=== PATIENT | male | born 1980 | race Caucasian/White ===

== ENCOUNTER 2019-09-18 09:20 | Emergency (ER) | payer BC, OTHER ==
[2019-09-18] MEDS ORDERED: Ondansetron 4 MG/2 ML SDV IV ONE (09:47)
[2019-09-18] MEDS ORDERED: Sodium Chloride 0.9% 10 ML Syringe FLUSH PRN (09:47)
[2019-09-18] MEDS ORDERED: Sodium Chloride 0.9% 1,000 ML IV ONE ×2 (09:47→11:04)
--- NOTE | 2019-09-18 09:47 | EDM.PDOC ---
ED HPI GENERAL MEDICAL PROBLEM - General Chief Complaint: Abdominal Pain Stated Complaint: MARTIN DOBSONRIA PAIN IN LEFT SIDE STOMACH Time Seen by Provider: 09/18/19 09:46 Source of Information: Reports: Patient, RN, RN Notes Reviewed History Limitations: Reports: No Limitations - History of Present Illness INITIAL COMMENTS - FREE TEXT/NARRATIVE: 38 year male presents to ER from home with c/o fever and left sided abdominal pain associated with diarrhea and nausea. Denies vomiting. He admits to a mild cough. Denies chest pain or shortness of breath. The symptoms came on suddenly yesterday. He reports recent exposure to a male with similar symptoms with whom he as been working in close quarters with. The male co-worker was Covid tested and negative. Onset: Sudden Onset Date: 09/17/19 Duration: Constant Location: Reports: Abdomen Quality: Reports: Ache, Other (Cramping) Severity: Severe Improves with: Reports: None Worsens with: Reports: None Associated Symptoms: Reports: No Other Symptoms Abdominal Pain Score (Numeric/FACES): 8 - Related Data Allergies Allergy/AdvReac Type Severity Reaction Status Date / Time No Known Allergies Allergy Verified 08/26/13 15:50 Home Meds: Home Meds . [No Known Home Meds] 08/26/13 [History] Past Medical History - Past Health History Medical/Surgical History: Denies Medical/Surgical History Social & Family History - Family History Family Medical History: Noncontributory - Tobacco Use Smoking Status *Q: Never Smoker - Caffeine Use Caffeine Use: Reports: Coffee - Recreational Drug Use Recreational Drug Use: No - Living Situation & Occupation Living situation: Reports: with Family Occupation: Employed ED ROS GENERAL - Review of Systems Review Of Systems: Comprehensive ROS is negative, except as noted in HPI. ED EXAM, GI/ABD - Physical Exam Exam: See Below Exam Limited By: No Limitations General Appearance: Alert, WD/WN, No Apparent Distress Eyes: Bilateral: Normal Appearance (No scleral icterus) Ears: Normal External Exam Nose: Normal Inspection, Normal Mucosa, No Blood Throat/Mouth: Normal Inspection, Normal Lips, Normal Teeth, Normal Gums, Normal Oropharynx, Normal Voice, No Airway Compromise Head: Atraumatic, Normocephalic Neck: Normal Inspection, Supple, Non-Tender, Full Range of Motion Respiratory/Chest: No Respiratory Distress, Lungs Clear, Normal Breath Sounds, No Accessory Muscle Use, Chest Non-Tender Cardiovascular: Regular Rate, Rhythm, No Edema, Tachycardia GI/Abdominal Exam: Soft, No Organomegaly, No Distention, No Abnormal Bruit, No Mass, Tender (mild at epigastric, LUQ and LLQ), Abnormal Bowel Sounds (Slightly hyperactive bowel sounds). No: Guarding, Rigid, Rebound (Male) Exam: Deferred Rectal (Males) Exam: Deferred Back Exam: Normal Inspection. No: CVA Tenderness (L), CVA Tenderness (R) Extremities: Normal Inspection, Normal Range of Motion, Non-Tender, Normal Capillary Refill, No Pedal Edema Neurological: Alert, Oriented, CN II-XII Intact, Normal Cognition, Normal Gait, No Motor/Sensory Deficits Psychiatric: Normal Affect, Normal Mood Skin Exam: Warm, Dry, Intact, Normal Color, No Rash. No: Ecchymosis, Jaundice, Petechiae Course - Vital Signs Last Recorded V/S: Last Vital Signs Temp 97.2 F 09/18/19 09:32 Pulse 110 H 09/18/19 09:32 Resp 14 09/18/19 09:32 BP 122/98 H 09/18/19 09:32 Pulse Ox 96 09/18/19 09:32 - Orders/Labs/Meds Orders: Active Orders 24 hr Category Date Time Status Peripheral IV Care [RC] . DIRECTED Care 09/18/19 09:47 Active Sodium Chloride 0.9% [Normal Saline] 1,000 ml Med 09/18/19 11:04 Active IV .BOLUS Sodium Chloride 0.9% [Saline Flush] Med 09/18/19 09:47 Active 10 ml FLUSH ASDIRECTED PRN Peripheral IV Insertion Adult [OM.PC] Stat Oth 09/18/19 09:47 Ordered Medication Orders Sodium Chloride (Normal Saline) 1,000 mls @ 999 mls/hr IV .BOLUS ONE Stop: 09/18/19 12:04 Last Admin: 09/18/19 11:14 Dose: 999 mls/hr Sodium Chloride (Saline Flush) 10 ml FLUSH ASDIRECTED PRN PRN Reason: Keep Vein Open Last Admin: 09/18/19 10:00 Dose: 10 ml Labs: Laboratory Tests 09/18/19 09/18/19 09/18/19 Range/Units 10:00 10:00 10:06 WBC 14.4 H (5.0-10.0) 10^3/uL RBC 5.79 (4.6-6.2) 10^6/uL Hgb 17.6 (14.0-18.0) g/dL Hct 50.8 (40.0-54.0) % MCV 87.7 (80-100) fL MCH 30.4 (27.0-34.0) pg MCHC 34.6 (33.0-35.0) g/dL Plt Count 273 (150-450) 10^3/uL Neut % (Auto) 83.5 H (42.2-75.2) % Lymph % (Auto) 11.5 L (20.5-50.1) % Mcintosh % (Auto) 4.9 (2-8) % Eos % (Auto) 0.0 L (1.0-3.0) % Baso % (Auto) 0.1 (0.0-1.0) % Sodium 140 (136-145) mmol/L Potassium 3.6 (3.5-5.1) mmol/L Chloride 102 (98-107) mmol/L Carbon Dioxide 25 (21-32) mmol/L Anion Gap 16.6 H (7-13) mEq/L BUN 15 (7-18) mg/dL Creatinine 1.33 H (0.70-1.30) mg/dL Est Cr Clr Drug Dosing 61.82 mL/min Estimated GFR (MDRD) 60 BUN/Creatinine Ratio 11.3 (No establ ref range) Glucose 100 H (74-99) mg/dL Calcium 8.9 (8.5-10.1) mg/dL Total Bilirubin 0.9 (0.2-1.0) mg/dL AST 21 (15-37) U/L ALT 35 (16-63) U/L Alkaline Phosphatase 85 (46-116) U/L C-Reactive Protein 20.5 H (0.0-0.9) mg/dL Total Protein 7.5 (6.4-8.2) g/dL Albumin 4.0 (3.4-5.0) g/dL Globulin 3.5 Albumin/Globulin Ratio 1.1 Amylase 48 (25-115) U/L Lipase 147 (73-393) U/L Urine Color Dark yellow (YELLOW) Urine Appearance Slightly cloudy (CLEAR) Urine pH 5.5 (5.0-9.0) Ur Specific [place] >= 1.030 (1.005-1.030) Urine Protein 30 H (NEGATIVE) Urine Glucose (UA) Negative (NEGATIVE) Urine Ketones 40 H (NEGATIVE) Urine Occult Blood Negative (NEGATIVE) Urine Nitrite Negative (NEGATIVE) Urine Bilirubin Small H (NEGATIVE) Urine Urobilinogen 0.2 (0.2-1.0) mg/dL Ur Leukocyte Esterase Negative (NEGATIVE) Urine RBC 0-5 /HPF Urine WBC 0-5 (0-5/HPF) /HPF Ur Epithelial Cells Rare (NOT SEEN) /HPF Amorphous Sediment Few (NOT SEEN) /HPF Urine Bacteria Few (0-FEW/HPF) /HPF Urine Mucus Many H (NOT SEEN) /LPF SARS-CoV-2 RNA (RT-PCR) (NEGATIVE) 09/18/19 Range/Units 11:19 WBC (5.0-10.0) 10^3/uL RBC (4.6-6.2) 10^6/uL Hgb (14.0-18.0) g/dL Hct (40.0-54.0) % MCV (80-100) fL MCH (27.0-34.0) pg MCHC (33.0-35.0) g/dL Plt Count (150-450) 10^3/uL Neut % (Auto) (42.2-75.2) % Lymph % (Auto) (20.5-50.1) % Mcintosh % (Auto) (2-8) % Eos % (Auto) (1.0-3.0) % Baso % (Auto) (0.0-1.0) % Sodium (136-145) mmol/L Potassium (3.5-5.1) mmol/L Chloride (98-107) mmol/L Carbon Dioxide (21-32) mmol/L Anion Gap (7-13) mEq/L BUN (7-18) mg/dL Creatinine (0.70-1.30) mg/dL Est Cr Clr Drug Dosing mL/min Estimated GFR (MDRD) BUN/Creatinine Ratio (No establ ref range) Glucose (74-99) mg/dL Calcium (8.5-10.1) mg/dL Total Bilirubin (0.2-1.0) mg/dL AST (15-37) U/L ALT (16-63) U/L Alkaline Phosphatase (46-116) U/L C-Reactive Protein (0.0-0.9) mg/dL Total Protein (6.4-8.2) g/dL Albumin (3.4-5.0) g/dL Globulin Albumin/Globulin Ratio Amylase (25-115) U/L Lipase (73-393) U/L Urine Color (YELLOW) Urine Appearance (CLEAR) Urine pH (5.0-9.0) Ur Specific [place] (1.005-1.030) Urine Protein (NEGATIVE) Urine Glucose (UA) (NEGATIVE) Urine Ketones (NEGATIVE) Urine Occult Blood (NEGATIVE) Urine Nitrite (NEGATIVE) Urine Bilirubin (NEGATIVE) Urine Urobilinogen (0.2-1.0) mg/dL Ur Leukocyte Esterase (NEGATIVE) Urine RBC /HPF Urine WBC (0-5/HPF) /HPF Ur Epithelial Cells (NOT SEEN) /HPF Amorphous Sediment (NOT SEEN) /HPF Urine Bacteria (0-FEW/HPF) /HPF Urine Mucus (NOT SEEN) /LPF SARS-CoV-2 RNA (RT-PCR) Negative (NEGATIVE) Meds: Medications Generic Name Dose Route Start Last Admin Trade Name Freq PRN Reason Stop Dose Admin Sodium Chloride 1,000 mls @ 999 mls/hr 09/18/19 11:04 09/18/19 11:14 Normal Saline IV 09/18/19 12:04 999 mls/hr .BOLUS ONE Administration Sodium Chloride 10 ml 09/18/19 09:47 09/18/19 10:00 Saline Flush FLUSH 10 ml ASDIRECTED PRN Administration Keep Vein Open Discontinued Medications Generic Name Dose Route Start Last Admin Trade Name Freq PRN Reason Stop Dose Admin Sodium Chloride 1,000 mls @ 999 mls/hr 09/18/19 09:47 09/18/19 10:04 Normal Saline IV 09/18/19 10:47 999 mls/hr .BOLUS ONE Administration Ondansetron HCl 4 mg 09/18/19 09:47 09/18/19 10:04 Zofran IV 09/18/19 09:48 4 mg ONETIME ONE Administration - Radiology Interpretation Free Text/Narrative:: [facility] Final Radiology Report Call: [phone] assistance Online chat: [email or web address] Name: JESUS ALBERTO AWAD Age: 38Years M Date: 09/18/2019 SSN: -- : [id number] Study: CR CHEST 2V Requesting Physician: YESSI PETERS Images: 2 Addl Studies: Provided Clinical History: cough,fever Contrast: Contrast Medium: Contrast Amount: Contrast Method: CONFIDENTIALITY STATEMENT This report is intended only for use by the referring physician, and only in accordance with law. If you received this in error, call [phone]. Page 1 of 1 PROCEDURE INFORMATION: Exam: XR Chest, 2 Views Exam date and time: 09/18/2019 10:05 AM Age: 38 years old Clinical indication: Cough and fever; Additional info: Cough, fever TECHNIQUE: Imaging protocol: XR of the chest Views: 2 views. COMPARISON: No relevant prior studies available. FINDINGS: Lungs: Unremarkable. No consolidation. Pleural space: Unremarkable. No pleural effusion. No pneumothorax. Heart/Mediastinum: Unremarkable. No cardiomegaly. Bones/joints: Unremarkable. IMPRESSION: No acute findings. Thank you for allowing us to participate in the care of your patient. Dictated and Authenticated by: Angel Rojas MD 09/18/2019 11:00 AM Central Time ([place] & [place]) Departure - Departure Time of Disposition: 11:54 Disposition: Home, Self-Care 01 Condition: Fair Clinical Impression: Viral gastroenteritis - Discharge Information *PRESCRIPTION DRUG MONITORING PROGRAM REVIEWED*: Not Applicable *COPY OF PRESCRIPTION DRUG MONITORING REPORT IN PATIENT GERMAINE: Not Applicable Instructions: Viral Gastroenteritis, Adult, [id number] Referrals: Mena Alvarez MD [Primary Care Provider] - Forms: ED Department Discharge Additional Instructions: Rx: Zofran 4mg Rx: Dicyclomine 20mg Drink plenty of fluid. Follow up in clinic if not improved in 4 to 5 days. Sepsis Event Note - Evaluation Sepsis Screening Result: No Definite Risk - Focused Exam Vital Signs: Vital Signs Temp Pulse Resp BP Pulse Ox 09/18/19 09:32 97.2 F 110 H 14 122/98 H 96 Date Exam was Performed: 09/18/19 Time Exam was Performed: 11:54 - My Orders Last 24 Hours: My Active Orders 09/18/19 09:47 Peripheral IV Care [RC] . DIRECTED Sodium Chloride 0.9% [Saline Flush] 10 ml FLUSH ASDIRECTED PRN Peripheral IV Insertion Adult [OM.PC] Stat 09/18/19 11:04 Sodium Chloride 0.9% [Normal Saline] 1,000 ml IV .BOLUS - Assessment/Plan Last 24 Hours: My Active Orders 09/18/19 09:47 Peripheral IV Care [RC] . DIRECTED Sodium Chloride 0.9% [Saline Flush] 10 ml FLUSH ASDIRECTED PRN Peripheral IV Insertion Adult [OM.PC] Stat 09/18/19 11:04 Sodium Chloride 0.9% [Normal Saline] 1,000 ml IV .BOLUS
[2019-09-18 10:25] LABS: ANION GAP 16.6 mEq/L (7-13)
--- NOTE | 2019-09-18 11:00 | CR ---
PROCEDURE INFORMATION: Exam: XR Chest, 2 Views Exam date and time: 09/18/2019 10:05 AM Age: 38 years old Clinical indication: Cough and fever; Additional info: Cough, fever TECHNIQUE: Imaging protocol: XR of the chest Views: 2 views. COMPARISON: No relevant prior studies available. FINDINGS: Lungs: Unremarkable. No consolidation. Pleural space: Unremarkable. No pleural effusion. No pneumothorax. Heart/Mediastinum: Unremarkable. No cardiomegaly. Bones/joints: Unremarkable. IMPRESSION: No acute findings.
== END 2019-09-18 12:07 | disposition home or self-care (01) ==
LOC: DL.ED 09:20
DX: A08.4 Viral intestinal infection, unspecified (principal); R19.7 Diarrhea, unspecified; Z20.828 Contact with and (suspected) exposure to other viral communicable diseases
CPT/HCPCS: 36415; 71046; 80053; 81001; 82150; 83690; 85025; 86140; 87635; 96361; 96374; 99284; J2405; J7030; U0002

== ENCOUNTER 2020-07-08 18:41 | Emergency (ER) | payer BC ==
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
[2020-07-08] MEDS ORDERED: Fluorescein 1 MG Ophth Strip EYELF ONE (19:32)
[2020-07-08] MEDS ORDERED: Bacitracin Oint 1 GM U/D Packet TOP ONE (19:33)
== END 2020-07-08 20:02 | disposition home or self-care (01) ==
LOC: DL.ED 18:41
DX: T20.16XA Burn of first degree of forehead and cheek, initial encounter (principal); T23.102A Burn of first degree of left hand, unspecified site, initial encounter; H57.89 Other specified disorders of eye and adnexa; X08.8XXA Exposure to other specified smoke, fire and flames, initial encounter; Y92.009 Unspecified place in unspecified non-institutional (private) residence as the place of occurrence of the external cause
CPT/HCPCS: 16000; 16020; 99283; 99283-25

== ENCOUNTER 2020-12-01 09:14 | Emergency (ER) | payer BC ==
[2020-12-01] MEDS ORDERED: methylPREDNISolone Sodium Succinate 125 MG/2 ML SDV IM ONE (09:37)
[2020-12-01] MEDS ORDERED: Famotidine 20 MG Tab PO ONE (09:38)
--- NOTE | 2020-12-01 10:09 | EDM.PDOC ---
ED HPI GENERAL MEDICAL PROBLEM - General Chief Complaint: Skin Complaint Stated Complaint: [id number] WHOLE BODY ITCHY ALL WEEKEND Time Seen by Provider: 12/01/20 09:30 Source of Information: Reports: Patient, RN, RN Notes Reviewed History Limitations: Reports: No Limitations - History of Present Illness INITIAL COMMENTS - FREE TEXT/NARRATIVE: Matt is a 40 y/o male who presents to the ED via personal vehicle with complaints of pruritus diffuse to his body. The patient reports he went swimming in a local pool approximately seven days ago, and has been experiencing pruritus since that same evening. He has taken multiple doses of Benadryl and has been applying hydrocortisone cream to the affected areas daily with no alleviation in symptoms. He denies fever, shaking chills, nausea, vomiting, or diarrhea. He has not changes to diet, lotions, soaps, detergents, or medications. He has no known environmental allergies. - Related Data Allergies Allergy/AdvReac Type Severity Reaction Status Date / Time No Known Allergies Allergy Verified 12/01/20 09:25 Home Meds: Home Meds . [No Known Home Meds] 08/26/13 [History] Past Medical History - Past Health History Medical/Surgical History: Denies Medical/Surgical History HEENT History: Reports: None Cardiovascular History: Reports: None Respiratory History: Reports: None Gastrointestinal History: Reports: None Genitourinary History: Reports: None Musculoskeletal History: Reports: None Neurological History: Reports: None Psychiatric History: Reports: None Endocrine/Metabolic History: Reports: None Hematologic History: Reports: None Immunologic History: Reports: None Oncologic (Cancer) History: Reports: None Dermatologic History: Reports: None - Infectious Disease History Infectious Disease History: Reports: Chicken Pox - Past Surgical History Head Surgeries/Procedures: Reports: None Social & Family History - Family History Family Medical History: No Pertinent Family History - Tobacco Use Tobacco Use Status *Q: Never Tobacco User Second Hand Smoke Exposure: No - Caffeine Use Caffeine Use: Reports: Coffee - Recreational Drug Use Recreational Drug Use: No - Living Situation & Occupation Living situation: Reports: with Family Occupation: Employed ED ROS GENERAL - Review of Systems Review Of Systems: Comprehensive ROS is negative, except as noted in HPI. ED EXAM, SKIN/RASH Exam: See Below Exam Limited By: No Limitations General Appearance: Alert, No Apparent Distress Eye Exam: Bilateral Eye: EOMI, Normal Inspection, PERRL (3mm) Ears: Normal External Exam, Hearing Grossly Normal Nose: Normal Inspection, Normal Mucosa, No Blood Throat/Mouth: Normal Inspection, Normal Oropharynx, Normal Voice, No Airway Compromise Head: Atraumatic, Normocephalic Neck: Normal Inspection, Supple, Non-Tender, Full Range of Motion Respiratory/Chest: No Respiratory Distress, Lungs Clear, Normal Breath Sounds, No Accessory Muscle Use, Chest Non-Tender. No: Wheezing, Stridor, Prolonged Expiration Cardiovascular: Normal Peripheral Pulses, Regular Rate, Rhythm, No Edema, No Gallop, No JVD, No Murmur, No Rub Peripheral Pulses: 2+: Radial (L), Radial (R) GI/Abdominal: Normal Bowel Sounds, Soft, Non-Tender, No Distention, No Abnormal Bruit, No Mass, Pelvis Stable (Male) Exam: Deferred Rectal (Males) Exam: Deferred Back Exam: Normal Inspection, Full Range of Motion, Other (Pinpoint scabbed lesions diffuse to back; Linear abrasion in various stages of healing from scratching) Extremities: Normal Range of Motion, Non-Tender, No Pedal Edema, Normal Capillary Refill, Redness (Diffuse fine rash), Other (Pinpoint scabbed lesions in varios stages of healing diffus; Linear abrasion in various stages of healing from scratching). No: Joint Swelling, Arm Pain, Leg Pain, Increased Warmth, Mottled, Pallor Neurological: Alert, Oriented, CN II-XII Intact, Normal Cognition, Normal Gait, Normal Reflexes, No Motor/Sensory Deficits Psychiatric: Normal Affect, Normal Mood Skin: Warm, Dry, Erythema (Surrounding lesions), Rash (Fine pinpoint lesions diffuse to back, chest, and extremities), Wound/Incision (Open scattered lesions to bilateral anterior lower legs with serous drainage connected to linear abrasions from scratching). No: Cyanosis, Diaphoretic, Ecchymosis, Increased Warmth, Mottled, Pallor, Petechiae, Zoster-Like Rash Location, Skin: Chest, Abdomen, Back, Upper Extremity, Right, Upper Extremity, Left, Lower Extremity, Right, Lower Extremity, Left. No: Head, Face, Neck, Pelvis, Genital, Palms, Soles, Axillary Characteristics: Papular, Fine. No: Vesicular Associated features: No: Warmth, Tenderness, Swelling, Crusting, Weeping Lymphatic: No Adenopathy Course - Vital Signs Last Recorded V/S: Last Vital Signs Temp 97.9 F 12/01/20 09:21 Pulse 79 12/01/20 09:21 Resp 16 12/01/20 09:21 BP 147/86 H 12/01/20 09:21 Pulse Ox 100 12/01/20 09:21 - Orders/Labs/Meds Meds: Medications Discontinued Medications Generic Name Dose Route Start Last Admin Trade Name Cindy PRN Reason Stop Dose Admin Famotidine 20 mg 12/01/20 09:38 12/01/20 09:47 Famotidine 20 Mg Tab PO 12/01/20 09:39 20 mg ONETIME ONE Administration Methylprednisolone Sodium Succinate 125 mg 12/01/20 09:37 12/01/20 09:47 Methylprednisolone Sodium Succinate 125 Mg/2 Ml Sdv IM 12/01/20 09:38 125 mg ONETIME ONE Administration - Re-Assessments/Exams Free Text/Narrative Re-Assessment/Exam: 12/01/20 Famotidine 20mg PO and Solu-Medrol 125mg IM administered. Findings of examination reviewed with patient. Will treat contact dermatitis with Medrol Dose Pack and OTC antihistamines. Discussed supportive cares for rash. Patient instructed to follow up with primary care provider in 5-7 days, sooner should rash persist. Discussed possibility of dermatology follow-up. Red flag signs and symptoms which would warrant reevaluation reviewed. Patient verbalized understanding and agreement with the plan of care. Departure - Departure Time of Disposition: 10:08 Disposition: Home, Self-Care 01 Condition: Good Clinical Impression: Contact dermatitis Qualifiers: Contact dermatitis type: allergic Contact dermatitis trigger: other chemical product Qualified Code(s): L23.5 - Allergic contact dermatitis due to other chemical products - Discharge Information *PRESCRIPTION DRUG MONITORING PROGRAM REVIEWED*: Not Applicable *COPY OF PRESCRIPTION DRUG MONITORING REPORT IN PATIENT GERMAINE: Not Applicable Instructions: Contact Dermatitis Referrals: Mena Alvarez MD [Primary Care Provider] - Forms: ED Department Discharge Additional Instructions: Rx: Medrol Dose Pack 1.) Start Medrol dose pack tomorrow, finish the pack even as symptoms improve. 2.) You may continue taking Benadryl 50mg three times a day. Should you experience significant drowsiness, you can switch to fexofenadine (Tracey) 120mg, twice a day. 3.) You may also take famatodine (Pepcid) 20 mg, daily. Start this medication tomorrow as you received it today in the emergency department. 4.) Apply a non-scented, lotion or cream to the affected skin daily. Eucerin, Vaseline, Gold Floyd, etc... 5.) Follow up with your primary care provider regarding today's visit. Should you not experience alleviation of itching, follow up early next week for a dermatology referral. Sepsis Event Note (ED) - Focused Exam Vital Signs: Vital Signs Temp Pulse Resp BP Pulse Ox 12/01/20 09:21 97.9 F 79 16 147/86 H 100
== END 2020-12-01 10:22 | disposition home or self-care (01) ==
LOC: DL.ED 09:14
DX: L23.5 Allergic contact dermatitis due to other chemical products (principal)
CPT/HCPCS: 99283; A9270; J2930; 96372; 99282

== ENCOUNTER 2022-08-02 02:40 | Emergency (ER) | payer BC ==
[~2022-08-02 02:40] MED LIST: Lactated Ringers 1,000 ML IV ONE; Ondansetron 4 MG/2 ML SDV IVPUSH ONE
[2022-08-02 02:46] LABS: ANION GAP 20.6 mEq/L (7-13)
[2022-08-02 03:00] LABS: AMPHETAMINES,URINE NEGATIVE (NEGATIVE); BARBITURATES,URINE NEGATIVE (NEGATIVE); BENZODIAZEPINE,URINE NEGATIVE (NEGATIVE); MDMA (ECSTASY), URINE NEGATIVE (NEGATIVE); METHADONE,URINE NEGATIVE (NEGATIVE); METHAMPHETAMINES,URINE NEGATIVE (NEGATIVE); OPIATES,URINE NEGATIVE (NEGATIVE); OXYCODONE,URINE NEGATIVE (NEGATIVE); PHENCYCLIDINE,URINE NEGATIVE (NEGATIVE); TCA,URINE NEGATIVE (NEGATIVE)
[2022-08-02] MEDS ORDERED: Sodium Chloride 0.9% 1,000 ML IV ONE (03:14)
== END 2022-08-02 03:58 | disposition home or self-care (01) ==
LOC: DL.ED 02:40
DX: F10.10 Alcohol abuse, uncomplicated (principal); Y90.8 Blood alcohol level of 240 mg/100 ml or more; W18.30XA Fall on same level, unspecified, initial encounter
CPT/HCPCS: 36415; 70450; 72125; 80053; 80143; 80179; 80305-QW; 80307; 81003; 85025; 85610; 87040; 96361; 96374; 99283; 99284-25; J2405; J7030; J7120